=== PATIENT | male | born 1940 | race Caucasian/White ===

== ENCOUNTER 2021-02-22 13:35 | Outpatient (CLI) | payer OTHER, MEDICARE | END 2021-02-22 13:36 | disposition home or self-care (01) | LOC: SJX 13:35 → RAD 13:35 → EDSTATUS 15:09 | PROVIDERS: ATTEND Internal Medicine Critical Care Medicine | DX: R06.00 Dyspnea, unspecified (principal); J98.4 Other disorders of lung | CPT/HCPCS: 71046 ==

== ENCOUNTER 2021-03-02 07:25 | Outpatient (CLI) | payer MEDICARE ==
[2021-03-02] MEDS ORDERED: Iopamidol-370 76% 500 ML 1 ML ONE (10:58)
== END 2021-03-02 07:26 | disposition home or self-care (01) ==
LOC: CT 07:25
PROVIDERS: ATTEND Thoracic Surgery (Cardiothoracic Vascular Surgery)
DX: I71.4 Abdominal aortic aneurysm, without rupture (principal); N28.89 Other specified disorders of kidney and ureter; N32.89 Other specified disorders of bladder; K44.9 Diaphragmatic hernia without obstruction or gangrene; N40.0 Benign prostatic hyperplasia without lower urinary tract symptoms; Z98.890 Other specified postprocedural states
CPT/HCPCS: 74174; 82565; Q9967

== ENCOUNTER 2023-01-21 17:24 | Inpatient (IN) | payer MEDICARE ==
[~2023-01-21 17:24] MED LIST: Iopamidol 370 76% 100 ML VIAL ONE
[2023-01-21 17:54] LABS: Hemoglobin 16.8 g/dL (14.0-18.0); Manual Diff?? YES; Mean Corpuscular Hemoglobin 31.8 pg (27.0-31.0); Mean Corpuscular Volume 90.7 fl (78.0-98.0); Mean Platelet Volume 10.4 fL (7.4-10.4); Platelet Count 285 10x3/uL (130-400); RBC Distribution Width 12.9 % (11.5-14.5); Red Blood Cell (RBC) Count 5.29 mill/uL (4.70-6.10); White Blood Cell (WBC) Count 8.5 10x3/uL (4.8-10.8)
[2023-01-21] MEDS ORDERED: LevoFLOXacin 750 mg/D5W 150 ml Premix Bag ONE (17:56)
[2023-01-21] MEDS ORDERED: Sodium Chloride 0.9% 100 ML ONE (17:56)
[2023-01-21] MEDS ORDERED: Cefepime 2 GM VIAL ONE (17:56)
[2023-01-21 18:09] LABS: Delete Auto Diff?? YES
[2023-01-21 18:15] LABS: ALT (SGPT) 32 U/L (8-55); AST (SGOT) 45 U/L (5-34); Albumin 3.6 g/dL (3.4-4.8); Alkaline Phosphatase 51 U/L (40-110); Anion Gap 18 mmol/L (10-20); BUN (Urea Nitrogen) 17 mg/dL (8.4-25.7); Bilirubin, Total 0.8 mg/dL (0.2-1.2); Calc. Creatinine Clearance 0 mL/min (70-130); Calcium 8.8 mg/dL (7.8-10.44); Carbon Dioxide 19 mmol/L (23-31); Chloride 104 mmol/L (98-107); Estimated GFR 60; Globulin 3.5 g/dL (2.4-3.5); Glucose 99 mg/dL (83-110); Potassium 4.2 mmol/L (3.5-5.1); Protein, Total 7.1 g/dL (5.8-8.1); Sodium 137 mmol/L (136-145)
[2023-01-21 18:30] LABS: Band 5 % (5-11); Burr Cells SLIGHT = 2-5 cells HPF (0-1); CellaVision Operator ID LAB.KB; Large Platelets 6.9 % (0-5); Lymphocytes 9 % (21-51); Macrocytosis SLIGHT = 6-15 cells HPF (0-5); Monocytes 15 % (0-10); Neutrophil 60 % (42-75); Ovalocytes SLIGHT = 2-5 cells HPF (0-1); Platelet Adequacy Comment Platelets Normal; Polychromasia SLIGHT = 2-3 cells HPF (0-2); Reactive Lymphocytes 12 % (0-10); Smudge Cells 27.5 %; Total Cell Count 102
[2023-01-21 19:05] LABS: SARS-CoV-2 NAA Rapid Test DETECTED (NotDetected)
[2023-01-21] MEDS ORDERED: Ipratropium/Albuterol 3 ML NEB ONE (19:57)
[2023-01-21] MEDS ORDERED: Ondansetron PF 4 MG/2 ML Vial IVP PRN (20:00)
[2023-01-21] MEDS ORDERED: Sodium Chloride 0.9% 1,000 ML IV SCH (20:00)
[2023-01-21] MEDS ORDERED: Ondansetron ODT 4 MG TAB SL PRN (20:00)
[2023-01-21] MEDS ORDERED: Acetaminophen 325 MG TAB PO PRN ×2 (20:00→21:49)
[2023-01-21] MEDS ORDERED: Dexamethasone 10 MG/ML VIAL ONE (21:34)
[2023-01-21] MEDS ORDERED: Acetaminophen 650 MG Suppository PR PRN (21:49)
[2023-01-21] MEDS ORDERED: Benzonatate 100 MG CAP PO PRN (21:49)
[2023-01-21] MEDS ORDERED: Ipratropium/Albuterol 3 ML NEB NEB PRN (21:49)
[2023-01-21 22:39] VITALS: BMI 21.4
[2023-01-21 23:20] LABS: Hematocrit 41.6 % (42.0-52.0); Hemoglobin 13.9 g/dL (14.0-18.0); Manual Diff?? YES; Mean Corpuscular HGB CONC 33.4 g/dL (32.0-36.0); Mean Corpuscular Hemoglobin 31.4 pg (27.0-31.0); Mean Platelet Volume 9.8 fL (7.4-10.4); Platelet Count 232 10x3/uL (130-400); RBC Distribution Width 13.1 % (11.5-14.5); Red Blood Cell (RBC) Count 4.43 mill/uL (4.70-6.10); White Blood Cell (WBC) Count 6.3 10x3/uL (4.8-10.8)
[2023-01-21 23:42] LABS: Delete Auto Diff?? YES; Mean Corpuscular Volume 93.9 fl (78.0-98.0)
[2023-01-22 00:03] LABS: Band 10 % (5-11); Burr Cells SLIGHT = 2-5 cells HPF (0-1); CellaVision Operator ID LAB.JMM; Lymphocytes 4 % (21-51); Macrocytosis SLIGHT = 6-15 cells HPF (0-5); Metamyelocyte 1 % (0-0); Monocytes 7 % (0-10); Neutrophil 77 % (42-75); Platelet Adequacy Comment Platelets Normal; Reactive Lymphocytes 1 % (0-10); Total Cell Count 100
[2023-01-22 07:14] LABS: Anion Gap 18 mmol/L (10-20); BUN (Urea Nitrogen) 14 mg/dL (8.4-25.7); Calc. Creatinine Clearance 56 mL/min (70-130); Calcium 8.1 mg/dL (7.8-10.44); Carbon Dioxide 19 mmol/L (23-31); Chloride 106 mmol/L (98-107); Estimated GFR 74; Glucose 150 mg/dL (83-110); Potassium 4.6 mmol/L (3.5-5.1); Sodium 138 mmol/L (136-145)
[2023-01-22] MEDS ORDERED: Non-Formulary Item 1 EACH (Fluticasone/Umeclidin/Vilanter [Trelegy Ellipta 200-62.5-25] 1 IH SCH (09:00)
[2023-01-22] MEDS: cefTRIAXone\\ROCEPHIN 1 GM in Sodium Chloride 0.9% 100 ML IVPB SCH (09:59)
[2023-01-22] MEDS: Amlodipine 10 MG TAB PO SCH (10:03)
[2023-01-22] MEDS: Famotidine 20 MG TAB PO SCH (10:04)
[2023-01-22] MEDS: Ascorbic Acid 500 mg Chewable Tablet PO SCH (10:04)
[2023-01-22] MEDS: Zinc Sulfate 220 MG CAP PO SCH (10:04)
[2023-01-22] MEDS: Cholecalciferol (Vitamin D3) 400 UNITS TAB PO SCH (10:04)
[2023-01-22] MEDS: Dexamethasone 4 mg/ml Vial SLOW IVP SCH (10:04)
[2023-01-22] MEDS: Lisinopril 5 MG TAB PO SCH (10:04)
[2023-01-22] MEDS ORDERED: Sodium Chloride 0.45% 1,000 ML IV SCH (11:30)
[2023-01-22] MEDS ORDERED: Albuterol 200 PUFF (6.7GM INHALER) INH PRN (11:33)
[2023-01-22] MEDS ORDERED: Ipratropium/Albuterol 3 ML NEB NEB SCH (13:00)
[2023-01-22] MEDS: Aspirin 81 mg Enteric Coated Tablet PO SCH ×2 (13:40→21:10)
[2023-01-22] MEDS: Metoprolol Tartrate 25 MG TAB PO SCH ×2 (13:40→21:10)
[2023-01-22] MEDS: Albuterol 200 PUFF (6.7GM INHALER) INH SCH ×2 (15:30→18:34)
[2023-01-22] MEDS: Mometasone 100 MCG/PUFF (1 INHALER) INH SCH (18:34)
[2023-01-23] MEDS: Albuterol 200 PUFF (6.7GM INHALER) INH SCH ×7 (02:08→22:25)
[2023-01-23 06:12] LABS: Hematocrit 39.8 % (42.0-52.0); Hemoglobin 13.4 g/dL (14.0-18.0); Manual Diff?? YES; Mean Corpuscular HGB CONC 33.7 g/dL (32.0-36.0); Mean Corpuscular Hemoglobin 31.3 pg (27.0-31.0); Mean Platelet Volume 10.6 fL (7.4-10.4); Platelet Count 307 10x3/uL (130-400); RBC Distribution Width 13.2 % (11.5-14.5); Red Blood Cell (RBC) Count 4.28 mill/uL (4.70-6.10); White Blood Cell (WBC) Count 13.6 10x3/uL (4.8-10.8)
[2023-01-23 06:19] LABS: Delete Auto Diff?? YES
[2023-01-23 06:46] LABS: Band 6 % (5-11); CellaVision Operator ID lab.abc; Lymphocytes 4 % (21-51); Monocytes 5 % (0-10); Neutrophil 84 % (42-75); Platelet Adequacy Comment Platelets Normal; RBC Morphology Within Normal Limits; Reactive Lymphocytes 1 % (0-10); Smudge Cells 10.1 %; Total Cell Count 99
[2023-01-23 07:06] LABS: ALT (SGPT) 24 U/L (8-55); AST (SGOT) 32 U/L (5-34); Albumin 2.6 g/dL (3.4-4.8); Alkaline Phosphatase 40 U/L (40-110); Anion Gap 12 mmol/L (10-20); BUN (Urea Nitrogen) 15 mg/dL (8.4-25.7); Bilirubin, Total 0.4 mg/dL (0.2-1.2); Calc. Creatinine Clearance 61 mL/min (70-130); Calcium 8.2 mg/dL (7.8-10.44); Carbon Dioxide 21 mmol/L (23-31); Chloride 109 mmol/L (98-107); Estimated GFR 81; Globulin 2.7 g/dL (2.4-3.5); Glucose 129 mg/dL (83-110); Magnesium 2.4 mg/dL (1.6-2.6); Potassium 4.2 mmol/L (3.5-5.1); Protein, Total 5.3 g/dL (5.8-8.1); Sodium 138 mmol/L (136-145)
[2023-01-23] MEDS: Mometasone 100 MCG/PUFF (1 INHALER) INH SCH ×3 (08:32→18:53)
[2023-01-23] MEDS: Aspirin 81 mg Enteric Coated Tablet PO SCH ×2 (09:12→20:22)
[2023-01-23] MEDS: Amlodipine 10 MG TAB PO SCH (09:12)
[2023-01-23] MEDS: Metoprolol Tartrate 25 MG TAB PO SCH ×2 (09:12→20:22)
[2023-01-23] MEDS: cefTRIAXone\\ROCEPHIN 1 GM in Sodium Chloride 0.9% 100 ML IVPB SCH (09:12)
[2023-01-23] MEDS: Lisinopril 5 MG TAB PO SCH (09:13)
[2023-01-23] MEDS: Zinc Sulfate 220 MG CAP PO SCH (09:13)
[2023-01-23] MEDS: Dexamethasone 4 mg/ml Vial SLOW IVP SCH (09:13)
[2023-01-23] MEDS: Cholecalciferol (Vitamin D3) 400 UNITS TAB PO SCH (09:13)
[2023-01-23] MEDS: Ascorbic Acid 500 mg Chewable Tablet PO SCH (09:13)
[2023-01-23] MEDS: Famotidine 20 MG TAB PO SCH ×2 (09:13→20:22)
[2023-01-24] MEDS: Albuterol 200 PUFF (6.7GM INHALER) INH SCH ×4 (02:30→23:19)
[2023-01-24 06:11] LABS: Hematocrit 42.8 % (42.0-52.0); Hemoglobin 14.5 g/dL (14.0-18.0); Manual Diff?? YES; Mean Corpuscular HGB CONC 33.9 g/dL (32.0-36.0); Mean Corpuscular Volume 91.6 fl (78.0-98.0); Mean Platelet Volume 10.5 fL (7.4-10.4); Platelet Count 339 10x3/uL (130-400); RBC Distribution Width 13.4 % (11.5-14.5); Red Blood Cell (RBC) Count 4.67 mill/uL (4.70-6.10); White Blood Cell (WBC) Count 12.6 10x3/uL (4.8-10.8)
[2023-01-24 06:40] LABS: Anion Gap 12 mmol/L (10-20); BUN (Urea Nitrogen) 15 mg/dL (8.4-25.7); CRP (Inflammatory) 2.87 mg/dL (= or < 0.5); Calc. Creatinine Clearance 55 mL/min (70-130); Calcium 8.4 mg/dL (7.8-10.44); Carbon Dioxide 24 mmol/L (23-31); Chloride 107 mmol/L (98-107); Estimated GFR 72; Glucose 88 mg/dL (83-110); Potassium 4.2 mmol/L (3.5-5.1); Sodium 139 mmol/L (136-145)
[2023-01-24 06:53] LABS: Delete Auto Diff?? YES
[2023-01-24 07:39] LABS: Band 13 % (5-11); CellaVision Operator ID LAB.GE; Large Platelets 7.9 % (0-5); Lymphocytes 7 % (21-51); Monocytes 4 % (0-10); Neutrophil 71 % (42-75); Platelet Adequacy Comment Platelets Normal; Polychromasia SLIGHT = 2-3 cells HPF (0-2); Reactive Lymphocytes 5 % (0-10); Total Cell Count 101
[2023-01-24] MEDS: Lisinopril 5 MG TAB PO SCH (08:19)
[2023-01-24] MEDS: Famotidine 20 MG TAB PO SCH ×2 (08:19→19:57)
[2023-01-24] MEDS: Amlodipine 10 MG TAB PO SCH (08:19)
[2023-01-24] MEDS: Zinc Sulfate 220 MG CAP PO SCH (08:19)
[2023-01-24] MEDS: Ascorbic Acid 500 mg Chewable Tablet PO SCH (08:19)
[2023-01-24] MEDS: Cholecalciferol (Vitamin D3) 400 UNITS TAB PO SCH (08:20)
[2023-01-24] MEDS: Dexamethasone 4 mg/ml Vial SLOW IVP SCH (08:20)
[2023-01-24] MEDS: Aspirin 81 mg Enteric Coated Tablet PO SCH ×2 (08:20→19:57)
[2023-01-24] MEDS: cefTRIAXone\\ROCEPHIN 1 GM in Sodium Chloride 0.9% 100 ML IVPB SCH (08:20)
[2023-01-24] MEDS: Metoprolol Tartrate 25 MG TAB PO SCH ×2 (08:20→19:57)
[2023-01-24] MEDS: Mometasone 100 MCG/PUFF (1 INHALER) INH SCH ×2 (18:52→19:26)
[2023-01-25] MEDS: Albuterol 200 PUFF (6.7GM INHALER) INH SCH (03:13)
[2023-01-25] MEDS: Amlodipine 10 MG TAB PO SCH (08:38)
[2023-01-25] MEDS: Zinc Sulfate 220 MG CAP PO SCH (08:39)
[2023-01-25] MEDS: cefTRIAXone\\ROCEPHIN 1 GM in Sodium Chloride 0.9% 100 ML IVPB SCH (08:39)
[2023-01-25] MEDS: Aspirin 81 mg Enteric Coated Tablet PO SCH (08:39)
[2023-01-25] MEDS: Cholecalciferol (Vitamin D3) 400 UNITS TAB PO SCH (08:39)
[2023-01-25] MEDS: Ascorbic Acid 500 mg Chewable Tablet PO SCH (08:39)
[2023-01-25] MEDS: Famotidine 20 MG TAB PO SCH (08:40)
[2023-01-25] MEDS: Lisinopril 5 MG TAB PO SCH (08:40)
[2023-01-25] MEDS: Dexamethasone 4 mg/ml Vial SLOW IVP SCH (08:40)
[2023-01-25] MEDS: Metoprolol Tartrate 25 MG TAB PO SCH (08:40)
[2023-01-25 08:44] VITALS: BP 131/83; TEMP 97.5
== END 2023-01-25 10:36 | disposition home or self-care (01) | DRG 177 ==
LOC: ERS 17:24 → T4-B 20:04
PROVIDERS: ADMIT Student in an Organized Health Care Education/Training Program; ATTEND Family Medicine
PROC: 8E0ZXY6 Isolation (ICD-10-PCS; 2023-01-21)
PROC: 3E0333Z Introduction of Anti-inflammatory into Peripheral Vein, Percutaneous Approach (ICD-10-PCS; principal; 2023-01-22)
DX: U07.1 COVID-19 (principal); J12.82 Pneumonia due to coronavirus disease 2019; J96.01 Acute respiratory failure with hypoxia; J44.1 Chronic obstructive pulmonary disease with (acute) exacerbation; J44.0 Chronic obstructive pulmonary disease with (acute) lower respiratory infection; I10 Essential (primary) hypertension; R59.9 Enlarged lymph nodes, unspecified; Z87.891 Personal history of nicotine dependence; Z98.890 Other specified postprocedural states
CPT/HCPCS: 36415; 71045; 71260; 80048; 80053; 83605; 83735; 85025; 86140; 87040; 93005; 94640; 96361; 96365; 96375; J0692; J0696; J1100; J1650; J1956; J3490; J7050; J7620; Q9967

== ENCOUNTER 2024-08-20 02:38 | Observation (INO) | payer MEDICARE ==
[2024-08-20 03:29] LABS: Actual Bicarbonate (HCO3v) 21.5 mEq/L (22-28); Base Excess -2.7 mEq/L (-2.0 to +3.0); Calcium, Ionized (venous) 1.19 mmol/L (1.16-1.32); Chloride (VBG) 104 mmol/L (98-106); Hematocrit-VBG 49 % (42.0-52.0); Hemoglobin (Hb) 16.6 g/dL (12.6-17.4); Potassium (VBG) 4.25 mmol/L (3.70-5.30); Sodium 141 mmol/L (133-146)
[2024-08-20 03:47] LABS: #Basophils 0.13 10x3/uL (0.0-0.2); #Eosinophils 0.24 10x3/uL (0.0-0.7); #Monocytes 0.69 10x3/uL (0.11-0.59); #Neutrophils 5.82 10x3/uL (1.40-6.50); %Basophils 1.3 % (0.0-1.0); %Eosinophils 2.4 % (0.0-10.0); %Lymphocytes 30.9 % (21.0-51.0); %Monocytes 6.9 % (0.0-10.0); %Neutrophils 58.1 % (42.0-75.0); Hematocrit 47.2 % (42.0-52.0); Hemoglobin 15.6 g/dL (14.0-18.0); Mean Corpuscular Hemoglobin 31.0 pg (27.0-31.0); Mean Corpuscular Volume 93.8 fL (78.0-98.0); Platelet Count 199 10x3/uL (130-400); Red Blood Cell (RBC) Count 5.03 mill/uL (4.70-6.10); White Blood Cell (WBC) Count 10.02 10x3/uL (4.8-10.8)
[2024-08-20 04:24] LABS: Troponin I Less than 0.010 ng/mL (< 0.028)
[2024-08-20] MEDS ORDERED: Ondansetron PF 4 MG/2 ML Vial IVP PRN (05:33)
[2024-08-20] MEDS ORDERED: Senokot S 8.6-50 MG TAB PO PRN (05:33)
[2024-08-20] MEDS ORDERED: Acetaminophen 325 MG TAB PO PRN (05:33)
[2024-08-20 06:00] LABS: ALT (SGPT) 10 U/L (Less than 45); AST (SGOT) 21 U/L (11-34); Albumin 4.0 g/dL (3.1-4.5); Alkaline Phosphatase 60 U/L (40-110); Anion Gap 16 mmol/L (10-20); BUN (Urea Nitrogen) 20 mg/dL (8.4-25.7); Bilirubin, Total 0.6 mg/dL (0.3-1.2); Calc. Creatinine Clearance 0 mL/min (70-130); Calcium 9.6 mg/dL (7.8-10.44); Carbon Dioxide 24 mmol/L (23-31); Chloride 108 mmol/L (98-107); Globulin 3.2 g/dL (2.4-3.5); Glucose 104 mg/dL (83-110); Magnesium 2.0 mg/dL (1.6-2.6); Potassium 4.5 mmol/L (3.5-5.1); Sodium 143 mmol/L (136-145)
[2024-08-20 07:22] LABS: Troponin I Less than 0.010 ng/mL (< 0.028)
[2024-08-20 07:41] VITALS: BMI 22.9
[2024-08-20] MEDS: Heparin 5,000 UNITS/ML VIAL SC SCH (09:44)
[2024-08-20 10:33] LABS: Troponin I Less than 0.010 ng/mL (< 0.028)
[2024-08-20] MEDS ORDERED: Azithromycin 250 MG TAB PO SCH (10:45)
[2024-08-20] MEDS ORDERED: Iopamidol-370 76% 500 ML MDV (1 ML CHARGE) ONE (12:33)
[2024-08-20] MEDS: Mometasone 200 MCG/Formoterol 5 MCG 120 PUFF INHALER INH SCH (19:15)
[2024-08-21 04:36] LABS: #Basophils Less than 0.03 10x3/uL (0.0-0.2); #Eosinophils Less than 0.03 10x3/uL (0.0-0.7); #Monocytes 0.37 10x3/uL (0.11-0.59); #Neutrophils 14.88 10x3/uL (1.40-6.50); %Basophils 0.1 % (0.0-1.0); %Eosinophils 0.0 % (0.0-10.0); %Lymphocytes 9.2 % (21.0-51.0); %Monocytes 2.2 % (0.0-10.0); %Neutrophils 87.9 % (42.0-75.0); Hematocrit 43.6 % (42.0-52.0); Hemoglobin 14.3 g/dL (14.0-18.0); Mean Corpuscular Hemoglobin 30.7 pg (27.0-31.0); Mean Corpuscular Volume 93.6 fL (78.0-98.0); Platelet Count 206 10x3/uL (130-400); Red Blood Cell (RBC) Count 4.66 mill/uL (4.70-6.10); White Blood Cell (WBC) Count 16.92 10x3/uL (4.8-10.8)
[2024-08-21 05:03] LABS: Anion Gap 12 mmol/L (10-20); BUN (Urea Nitrogen) 26 mg/dL (8.4-25.7); Calc. Creatinine Clearance 42 mL/min (70-130); Calcium 8.7 mg/dL (7.8-10.44); Carbon Dioxide 22 mmol/L (23-31); Chloride 109 mmol/L (98-107); Glucose 165 mg/dL (83-110); Potassium 4.4 mmol/L (3.5-5.1); Sodium 139 mmol/L (136-145)
[2024-08-21 17:37] VITALS: BP 127/68; TEMP 98.8
[2024-08-21] MEDS: Azithromycin 250 MG TAB PO SCH (17:43)
[2024-08-21] MEDS: Pantoprazole 40 MG DR.TAB PO SCH (17:44)
[2024-08-21] MEDS ORDERED: predniSONE 20 MG TAB PO SCH (21:00)
[2024-08-22] MEDS ORDERED: Pantoprazole 40 MG DR.TAB PO SCH (09:00)
== END 2024-08-21 19:25 | disposition home or self-care (01) ==
LOC: ERS 02:38 → 2NO 04:51
PROVIDERS: ADMIT Internal Medicine; ATTEND Internal Medicine
DX: J44.1 Chronic obstructive pulmonary disease with (acute) exacerbation (principal); I10 Essential (primary) hypertension; Z79.899 Other long term (current) drug therapy; Z79.51 Long term (current) use of inhaled steroids; Z91.018 Allergy to other foods; Z87.891 Personal history of nicotine dependence
CPT/HCPCS: 71045; 71275; 80053; 82805; 83605; 83735; 83880; 84484 ×2; 85025; 93005; 94640 ×3; J1644; J2919 ×2; 36415; 80048; 96374; J7620; Q9967